=== PATIENT | male | born 2000 | race Hispanic/Latino ===

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

== ENCOUNTER 2022-12-13 17:47 | Emergency (ER) | payer OTHER ==
[2022-12-13 19:39] LABS: SARS-CoV-2 NAA Rapid Test Not Detected (NotDetected)
[2022-12-13] MEDS ORDERED: Ipratropium/Albuterol 3 ML NEB ONE (19:51)
== END 2022-12-13 20:18 | disposition home or self-care (01) ==
LOC: ERS 17:47
DX: B34.9 Viral infection, unspecified (principal); R06.2 Wheezing; Z20.822 Contact with and (suspected) exposure to COVID-19
CPT/HCPCS: 71045; J7620